=== PATIENT | female | born 1950 | race Caucasian/White ===

== ENCOUNTER → 2018-04-30 12:05 | Outpatient (CLI) | payer MEDICARE, SELFPAY ==
[2018-04-24 14:36] VITALS: BMI 25.8
--- NOTE | 2018-04-30 12:09 | US_ITS ---
STUDY: ULTRASOUND OF THE FEMALE PELVIS - COMPLETE REASON FOR EXAM: Female, 67 years old. Perimenopausal bleeding. TECHNIQUE: Transabdominal and transvaginal (Transvaginal imaging, if present, was performed for enhanced visualization of uterus and endometrium, and posterior adnexal structures). COMPARISON: None. FINDINGS: The uterus is anteverted in the midline measuring 5.0 x 4.1 x 2.6 cm. Cystlike focus within the posterior fundal myometrium measuring 5 x 6 x 3 mm. Calcification in the anterior aspect of the lower uterine segment measuring 3 x 2 point. Endometrium 2 mm, fundal endometrium distended with fluid. Cervical nabothian cysts. Right ovary 13 x 15 x 10 mm, normal echotexture, small facility follicles, appropriate vascularity. There is no right adnexal mass, suspicious cyst or free fluid. The left ovary is not visualized. There is no visible left adnexal mass, suspicious cyst or free fluid. No cul-de-sac free fluid. US/Pelvic (Non ) IMPRESSION: Cystlike focus within the posterior fundal endometrium, probably cystic degeneration of fibroid. Calcified focus within the anterior aspect of the lower uterine segment is probably a small calcified fibroid. Fluid mildly distends the fundal endometrial cavity. The adjacent endometrial stripe is normal in thickness and echotexture. There are no masslike or polypoid features. Normal right ovary. Left ovary not visualized. Electronically Signed: Yovani Monae MD at 19:26 EST Tel , Service support ,
--- NOTE | 2018-04-30 12:09 | US_ITS ---
STUDY: ULTRASOUND OF THE FEMALE PELVIS - COMPLETE REASON FOR EXAM: Female, 67 years old. Perimenopausal bleeding. TECHNIQUE: Transabdominal and transvaginal (Transvaginal imaging, if present, was performed for enhanced visualization of uterus and endometrium, and posterior adnexal structures). COMPARISON: None. FINDINGS: The uterus is anteverted in the midline measuring 5.0 x 4.1 x 2.6 cm. Cystlike focus within the posterior fundal myometrium measuring 5 x 6 x 3 mm. Calcification in the anterior aspect of the lower uterine segment measuring 3 x 2 point. Endometrium 2 mm, fundal endometrium distended with fluid. Cervical nabothian cysts. Right ovary 13 x 15 x 10 mm, normal echotexture, small facility follicles, appropriate vascularity. There is no right adnexal mass, suspicious cyst or free fluid. The left ovary is not visualized. There is no visible left adnexal mass, suspicious cyst or free fluid. No cul-de-sac free fluid. US/Transvaginal Non- IMPRESSION: Cystlike focus within the posterior fundal endometrium, probably cystic degeneration of fibroid. Calcified focus within the anterior aspect of the lower uterine segment is probably a small calcified fibroid. Fluid mildly distends the fundal endometrial cavity. The adjacent endometrial stripe is normal in thickness and echotexture. There are no masslike or polypoid features. Normal right ovary. Left ovary not visualized. Electronically Signed: Yovani Monae MD at 19:26 EST Tel , Service support ,
[2018-05-29 10:23] VITALS: BMI 25.1
== END ==
PROVIDERS: Family Provider Family Medicine; PCP Family Medicine; Referring Provider Nurse Practitioner Women's Health; Visit Provider Nurse Practitioner Women's Health
DX: N95.0 Postmenopausal bleeding (principal)
CPT/HCPCS: 76830; 76856

== ENCOUNTER → 2021-01-16 07:57 | Outpatient (CLI) | payer MEDICARE, SELFPAY | PROVIDERS: PCP Family Medicine; Referring Provider Family Medicine; Visit Provider Family Medicine | DX: R69 Illness, unspecified (principal) ==

== ENCOUNTER → 2021-01-26 07:58 | Outpatient (CLI) | payer MEDICARE, SELFPAY ==
[2021-01-26 11:02] LABS: Cholesterol 188 mg/dL (200); High Density Lipoprotein 91 mg/dL; Triglycerides 64 mg/dL; Very Low Density Lipoprotein 13 mg/dL (5-40)
== END ==
PROVIDERS: PCP Family Medicine; Referring Provider Family Medicine; Visit Provider Family Medicine
DX: M81.0 Age-related osteoporosis without current pathological fracture (principal); E66.3 Overweight
CPT/HCPCS: 36415; 80061; 84443

== ENCOUNTER → 2021-07-19 | Outpatient (CLI) | payer MEDICARE, SELFPAY ==
[2021-07-19 10:50] LABS: Anion Gap 5 (5-15); BUN 21 mg/dL (7-18); BUN/Creat Ratio 27.6 RATIO (10-20); Calcium,Total 8.8 mg/dL (8.5-10.1); Chloride 108 mmol/L (98-107); Creatinine, Serum 0.76 mg/dL (0.55-1.02); EST Glomerular Filtration Rate 80 mL/min (>60); Est Glom Filt Rate - Afr Amer 96 mL/min (>60); Glucose 106 mg/dL (74-106); Phosphorus 3.8 mg/dL (2.5-4.9); Potassium 3.9 mmol/L (3.5-5.1); Sodium Level 139 mmol/L (136-145)
[2021-07-19 11:01] LABS: PTHIN 45.5 pg/mL (18.4-80.1)
== END | disposition home or self-care (01) ==
PROVIDERS: PCP Family Medicine; Referring Provider Family Medicine; Visit Provider Family Medicine
DX: Z13.220 Encounter for screening for lipoid disorders (principal); M81.0 Age-related osteoporosis without current pathological fracture
CPT/HCPCS: 36415; 80048; 82306; 83735; 83970; 84100

== ENCOUNTER → 2022-07-17 | Outpatient (CLI) | payer MEDICARE, SELFPAY ==
[2022-07-17 13:26] LABS: Cholesterol 187 mg/dL (200); High Density Lipoprotein 98 mg/dL; Triglycerides 56 mg/dL; Very Low Density Lipoprotein 11 mg/dL (5-40)
== END | disposition home or self-care (01) ==
LOC: MFPLAB 10:01
PROVIDERS: PCP Family Medicine; Visit Provider Family Medicine
DX: Z13.220 Encounter for screening for lipoid disorders (principal); Z79.899 Other long term (current) drug therapy
CPT/HCPCS: 36415; 80061

== ENCOUNTER → 2022-07-27 | Outpatient (CLI) | payer MEDICARE, SELFPAY ==
[2022-07-27 10:47] LABS: Vitamin D,25 Hydroxy 29.7 ng/mL
[2022-07-27 10:54] LABS: Anion Gap 5 (5-15); BUN 17 mg/dL (7-18); BUN/Creat Ratio 20.3 RATIO (10-20); Chloride 109 mmol/L (98-107); Creatinine, Serum 0.84 mg/dL (0.55-1.02); EST Glomerular Filtration Rate 71 mL/min (>60); Est Glom Filt Rate - Afr Amer 86 mL/min (>60); Glucose 95 mg/dL (74-106); Magnesium 2.2 mg/dL (1.6-2.6); Phosphorus 3.4 mg/dL (2.5-4.9); Potassium 3.9 mmol/L (3.5-5.1); Sodium Level 142 mmol/L (136-145); Thyroid Stim Hormone (TSH) 1.37 uIU/mL (0.358-3.74)
== END | disposition home or self-care (01) ==
LOC: MTLAB 08:35
PROVIDERS: PCP Family Medicine; Referring Provider Family Medicine; Visit Provider Family Medicine
DX: M81.0 Age-related osteoporosis without current pathological fracture (principal)
CPT/HCPCS: 36415; 80048; 82306; 83735; 83970; 84100; 84443

== ENCOUNTER → 2024-08-31 | Outpatient (CLI) | payer MEDICARE, SELFPAY ==
[2024-08-31 16:19] LABS: Anion Gap 11 (5-15); BUN 18 mg/dL (4-19); BUN/Creat Ratio 19.8 RATIO (10-20); Calcium,Total 9.5 mg/dL (7.6-11.0); Carbon Dioxide 23.5 mmol/L (21.0-32.0); Chloride 105 mmol/L (98-108); Cholesterol 187 mg/dL (<=200); Glucose 94 mg/dL (70-99); Low Density Lipoprotein Calc. 89 mg/dL; Potassium 4.1 mmol/L (3.3-5.1); Triglycerides 63 mg/dL; Very Low Density Lipoprotein 13 mg/dL (5-40); Vitamin D,25 Hydroxy 28.7 ng/mL (30-100); cholesterol:hdl ratio screen 2.18
== END | disposition home or self-care (01) ==
LOC: MFPLAB 11:15
PROVIDERS: PCP Family Medicine; Referring Provider Family Medicine; Visit Provider Family Medicine
DX: M81.0 Age-related osteoporosis without current pathological fracture (principal); Z13.220 Encounter for screening for lipoid disorders
CPT/HCPCS: 36415; 80048; 80061; 82306; 84443

== ENCOUNTER → 2024-10-01 | Outpatient (CLI) | payer MEDICARE, SELFPAY | END | disposition home or self-care (01) | LOC: LABSPEC 16:15 | PROVIDERS: PCP Family Medicine; Visit Provider Obstetrics & Gynecology | DX: N76.0 Acute vaginitis (principal) | CPT/HCPCS: 87070; 87077; 87205 ==